=== PATIENT | female | born 1975 | race Caucasian/White ===

== ENCOUNTER → 2022-01-31 | Outpatient (CLI) | payer BC ==
--- NOTE | 2022-02-01 08:17 | MR ---
EXAMINATION TYPE: MR lumbar spine wo con DATE OF EXAM: 01/31/2022 COMPARISON: NONE HISTORY: Pain in lower back and hips that travels down both legs x1 month. Radiculopathy per order. TECHNIQUE: Multiplanar, multisequence imaging of the lumbar spine is performed without IV contrast. FINDINGS: Sagittal images of the lumbar spine show vertebral body heights and alignment to appear sat isfactory. There is disc desiccation T12-L1 along with L3-L4 through the L5-S1 levels. Mild disc spac e narrowing and T12-L1 and L3-L4 levels is seen. Mild disc space narrowing with posterior annular tea r L5-S1 level. The conus medullaris is normal in position and signal ending at T12-L1 disc space leve l. The bone marrow signal intensity is within normal limits. Mild multilevel anterior spurring. Axial images at T12-L1 level shows mild broad-based disc bulge minimally effacing anterior thecal sac . Patent bilateral neural foramina. Axial images at L1-L2 and L2-L3 levels appear within normal limits. Axial images at L3-L4 level show focal left paracentral disc protrusion effacing the anterolateral th ecal sac on axial images 12 and 13. Patent bilateral neural foramina. This is in close proximity with probable effacement of the central left L4 nerve axial image 12 and sagittal images 6 and 7. Axial images at L4-L5 level show mild facet arthropathy otherwise are within normal limits. Axial images at L5-S1 level show tiny central disc protrusion with annular tear but spinal canal is p reserved, bilateral neural foramina are patent. Paraspinal muscle bulk is maintained. IMPRESSION: Multilevel degenerative changes as detailed above with most prominent findings or disc he rniation noted at L3-L4 level.
== END | disposition home or self-care (01) ==
LOC: RADMRIMAIN 07:42
PROVIDERS: ATTEND Physical Medicine & Rehabilitation
DX: M51.16 Intervertebral disc disorders with radiculopathy, lumbar region (principal); M47.26 Other spondylosis with radiculopathy, lumbar region
CPT/HCPCS: 72148